=== PATIENT | female | born 1945 | race Caucasian/White ===

== ENCOUNTER 2024-08-24 23:23 | Emergency (ER) | payer OTHER ==
[2024-08-24 23:56] VITALS: TEMP 98.4; BMI 24.3
[2024-08-25 05:07] VITALS: BP 109/62; PULSE 88; RESP 20
== END 2024-08-25 05:41 | disposition home or self-care (01) ==
LOC: JER 23:23
DX: S72.302A Unspecified fracture of shaft of left femur, initial encounter for closed fracture (principal); W06.XXXA Fall from bed, initial encounter
CPT/HCPCS: 70450-TC; 72125-TC; 93005; 93010; 99284-25